=== PATIENT | male | born 1985 | race Caucasian/White ===

== ENCOUNTER 2023-11-05 15:07 | Emergency (ER) | payer MEDICAID, OTHER ==
[~2023-11-05] VITALS: Ht 177.8 cm; Wt 95.5 kg
[2023-11-05] MEDS ORDERED: HYDR50SY PO (15:22)
[2023-11-05] MEDS ORDERED: BENADRYL (15:22)
[2023-11-05] MEDS ORDERED: LITHIUM (15:22)
[2023-11-05] MEDS ORDERED: LUVOX (15:22)
[2023-11-05] MEDS ORDERED: NALT50TA5 MT (15:22)
[2023-11-05] MEDS ORDERED: MELA10TA20 SL (15:22)
[2023-11-05] MEDS ORDERED: ARIP15TA2 PO (15:22)
[2023-11-05] MEDS ORDERED: BUPR-102 PO (15:22)
[2023-11-05 15:23] VITALS: O2SAT 100
[2023-11-05] MEDS ORDERED: OLAN5TAB3 PO (15:23)
[2023-11-05] MEDS ORDERED: ACETAMINOPHEN 325MG TABLET PO ONE (15:30)
[2023-11-05] MEDS ORDERED: ONDANSETRON HCL 4MG TABLET PO ONE (15:30)
[2023-11-05 17:36] LABS: BASOPHILS % 0.4 % (0.0-2.0); HEMATOCRIT. 33.6 % (42.0-52.0); HEMOGLOBIN. 11.2 g/dL (14.0-18.0); LYMPHOCYTES % 22.5 % (20.0-50.0); MEAN CORPUSCULAR HEMOGLOBIN 29.5 pg (28.0-32.0); MEAN CORPUSCULAR HGB CONC 33.3 g/dL (31.0-37.0); MEAN CORPUSCULAR VOLUME 88.5 fL (80.0-94.0); MEAN PLATELET VOLUME 8.8 fl (7.4-10.4); MONOCYTES % 2.6 % (2.0-8.0); NEUTROPHILS % 74.5 % (40.0-76.0); PLATELET 99 x1000/uL (130-400); RED BLOOD CELL COUNT 3.79 mill/uL (4.7-6.1); RED CELL DISTRIBUTION WIDTH 15.1 % (11.6-14.6); WHITE BLOOD COUNT 5.3 x1000/uL (4.5-11.0)
[2023-11-05 17:55] LABS: ALANINE AMINOTRANSFERASE 43 IU/L (10-49); ALBUMIN 3.4 g/dL (3.2-4.8); ASPARTATE AMINOTRANSFERASE 27 IU/L (<34); BILIRUBIN TOTAL 0.7 mg/dL (0.1-1.0); CALCIUM 8.6 mg/dL (8.7-10.4); CARBON DIOXIDE 25 mEq/L (21-32); CHLORIDE 108 mEq/L (98-107); CREATININE 0.7 mg/dL (0.6-1.3); GLUCOSE 118 mg/dL (70-105); POTASSIUM 3.7 mEq/L (3.5-5.1); PROTEIN TOTAL 7.1 g/dL (6.0-8.3); SODIUM 140 mEq/L (136-145); UREA NITROGEN BLOOD 5 mg/dL (9-23)
[2023-11-05 19:11] VITALS: BP 111/59; PULSE 69; RESP 16; TEMP 99.1
== END 2023-11-05 19:42 | disposition home or self-care (01) ==
LOC: ER 15:07
DX: B34.9 Viral infection, unspecified (principal); Z20.822 Contact with and (suspected) exposure to COVID-19
CPT/HCPCS: 99284; 71045; 87426; 80053; 83690; 85025; 87804 ×2; 36415; Q0162; C9803